=== PATIENT | female | born 1965 | race Two or more races ===

== ENCOUNTER 2017-04-14 09:23 | Emergency (ER) | payer OTHER ==
[~2017-04-14] VITALS: Ht 160 cm; Wt 60.0 kg
[2017-04-14] MEDS ORDERED: SODIUM CHLORIDE 0.9% 1,000 ML IV ONE (09:46)
[2017-04-14] MEDS ORDERED: ONDANSETRON HCL 4MG/2ML VIAL IV STA (09:46)
[2017-04-14] MEDS ORDERED: MORPHINE SULFATE 4 MG/ML CPJ (NOT FOR IM USE) IV STA (09:46)
[2017-04-14] MEDS ORDERED: KETOROLAC 30MG/ML VIAL IV ONE (10:00)
[2017-04-14 10:05] LABS: BASOPHILS % 0.4 % (0.0-2.0); EOSINOPHILS % 2.3 % (0.0-5.0); HEMATOCRIT. 39.2 % (36.0-48.0); HEMOGLOBIN. 13.1 g/dL (12.0-16.0); LYMPHOCYTES % 32.2 % (20.0-50.0); MEAN CORPUSCULAR VOLUME 89.6 fL (81.0-99.0); MEAN PLATELET VOLUME 7.4 fl (7.4-10.4); MONOCYTES % 6.9 % (2.0-8.0); NEUTROPHILS % 58.2 % (40.0-76.0); PLATELET 179 x1000/uL (130-400); RED BLOOD CELL COUNT 4.37 mill/uL (4.2-5.4)
[2017-04-14 10:13] LABS: CHLORIDE 108 mEq/L (98-107); PROTHROMBIN TIME 10.9 sec
[2017-04-14 10:19] LABS: CARBON DIOXIDE 28 mEq/L (21-32)
[2017-04-14] MEDS ORDERED: MIDAZOLAM HCL 2 MG/2 ML VIAL IV ONE (11:00)
[2017-04-14] MEDS ORDERED: FENTANYL CITRATE/PF 50MCG/ML 2ML VIAL IV ONE (11:00)
[2017-04-14] MEDS ORDERED: KETAMINE HCL 50 MG/ML 10ML IV ONE (11:00)
[2017-04-14 14:51] VITALS: BP 114/67
== END 2017-04-14 15:00 | disposition home or self-care (01) ==
LOC: ER 10:31
DX: S52.572A Other intraarticular fracture of lower end of left radius, initial encounter for closed fracture (principal); F17.210 Nicotine dependence, cigarettes, uncomplicated; Z71.6 Tobacco abuse counseling; V43.62XA Car passenger injured in collision with other type car in traffic accident, initial encounter; Y93.89 Activity, other specified; Y92.488 Other paved roadways as the place of occurrence of the external cause
CPT/HCPCS: 25605; 36415; 71010; 73100; 73110; 80053; 85025; 85610; 93005; 96361; 96374; 96375; 99152; 99285; J1885; J2250; J2270; J2405; J3010; J3490; J7030; Z7610; A4565